=== PATIENT | female | born 2000 | race African-American/Black ===

== ENCOUNTER 2023-06-01 11:19 | Emergency (ER) | payer SELFPAY ==
[2023-06-01 13:27] LABS: SARS-CoV-2 NAA Rapid Test Not Detected (NotDetected)
== END 2023-06-01 13:18 | disposition home or self-care (01) ==
LOC: ERS 11:19
DX: J02.9 Acute pharyngitis, unspecified (principal); Z20.822 Contact with and (suspected) exposure to COVID-19
CPT/HCPCS: 87081; 87430; 99283